=== PATIENT | male | born 1965 | race Caucasian/White ===

== ENCOUNTER → 2017-07-21 10:11 | Outpatient (CLI) | payer BC, SELFPAY ==
[2017-05-15 14:55] VITALS: BMI 32.3
--- NOTE | 2017-07-21 10:24 | MRI_ITS ---
STUDY: MRI BRAIN WITH AND WITHOUT CONTRAST REASON FOR EXAM: Male, 52 years old. Lung CA, BRAIN METS, INTERVAL F/U. TECHNIQUE: Standardized multiplanar fat and water weighted pulse sequences were obtained. 10 ml of Gadavist contrast material was administered intravenously for the contrast portion of the examination. COMPARISON: May 15, 2017 and February 21, 2017 FINDINGS: Again noted are the numerous cerebral and cerebellar enhancing lesions. These lesions have decreased in size and enhancement in comparison with the prior examinations. The largest lesion remains in the left cerebellar hemisphere and right parietal lobe with decreased surrounding vasogenic edema. Normal size of the ventricles and extra-axial spaces for the patient's age. There are a limited number of small white matter hyperintensities, distributed throughout the deep white matter tracts of the cerebral hemispheres, consistent with mild chronic white matter ischemic changes. Normal bilateral basal ganglia. Normal thalami. There is no extra-axial fluid accumulation. Normal flow voids within the major intracranial circulation suggesting patency by spin echo criteria. Normal venous enhancement. There is no enhancing intra-axial or extra-axial abnormality. Normal sella turcica, pituitary gland, infundibular stalk, optic chiasm and hypothalamus. Normal tectal plate and pineal gland. Normal midbrain, dulce maria and medulla. Normal cerebellum. Normal basal cisterns. Normal bilateral internal auditory canals. Small retention cyst is noted within the left maxillary sinus. There is bilateral mastoid fluid. MRI/Brain W/WO Contrast IMPRESSION: Continued decrease of the bilateral cerebral and cerebellar metastatic lesions. No new lesions. Electronically Signed: Yung Sapp MD at 10:28 EDT Tel , Service support ,
[2017-07-21 10:41] LABS: CREATININE FINGERSTICK 0.9 mg/dL (0.70-1.30); EGFR FINGERSTICK > 60.0000 mL/min (>60)
== END ==
PROVIDERS: Family Provider Nurse Practitioner; PCP Nurse Practitioner; Visit Provider Student in an Organized Health Care Education/Training Program
DX: C79.31 Secondary malignant neoplasm of brain (principal)
CPT/HCPCS: 70553; A9585; A4216

== ENCOUNTER → 2017-07-31 14:43 | Outpatient (CLI) | payer BC, SELFPAY ==
[2017-05-15 14:55] VITALS: BMI 32.3
--- NOTE | 2017-07-31 14:46 | US_ITS ---
PROCEDURE: ULTRASOUND GUIDED THORACENTESIS - RIGHT CLINICAL HISTORY: Male, 52 years old. Right pleural effusion CONSENT: The risks, benefits and alternatives to the procedure were explained to the patient, and the patient agreed to the procedure and signed the consent. STERILE BARRIER TECHNIQUE: The following sterile barrier precautions were used during the procedure: hand hygiene; use of 2% chlorhexidine aseptic; use of a cap, mask, sterile gown, sterile gloves, sterile full body drape, and a large sterile sheet. SEDATION: Local anesthesia TECHNIQUE: Under the ultrasound guidance using all elements of maximum sterile technique and after infiltration of the skin and subcutaneous soft tissues with 10 mL of lidocaine 1% a 5 Polish drainage catheter is introduced in the lower part of the right hemithorax. 570 mL of fluid were removed sample sent to lab for evaluation. The patient tolerated the procedure there was no immediate complication. US/Thoracentesis W US IMPRESSION: Successful ultrasound-guided thoracentesis. Electronically Signed: Lien Mary MD at 1:18 EDT Tel , Service support ,
--- NOTE | 2017-07-31 15:30 | RAD_ITS ---
STUDY: X-RAY CHEST REASON FOR EXAM: Male, 52 years old. Chest pain. Status post thoracentesis. TECHNIQUE: Two view, inspiration expiration views. COMPARISON: None. FINDINGS: Multiple bilateral lung metastases are noted. There is a small right pleural effusion. There is no evidence of pneumothorax. Normal size heart. Normal mediastinum and tameka. Normal visualized pulmonary arteries. Normal visualized aortic arch and descending thoracic aorta. Normal visualized thoracic spine. Normal visualized ribs, clavicles, and shoulders. There is no demonstrated abnormality of the visualized soft tissue structures of the upper abdomen. RAD/Chest Insp/Exp 2 View IMPRESSION: Multiple bilateral lung metastases are noted. There is a small right pleural effusion. There is no evidence of pneumothorax. Electronically Signed: Lien Mary MD at 16:28 EDT Tel , Service support ,
[2017-07-31 16:46] LABS: Glucose, Body Fluid 122 mg/dL (40-70)
--- NOTE | 2017-08-01 | FLU_PTH ---
PATIENT: FERNANDO ARCHULETA LOC: [facility]#:[id number] AGE/SX: 59/M ROOM: RE07/31/[address]: Dr. Amilcar Garza DO : 1965 BED: DIS: SPEC #: [id number] RECD: 08/01/17 14:57 STATUS: TEDDY RODDY #: [id number] ANDREE: 08/01/17 00:[address]: Amilcar Garza DEPT: CYTOLOGY RECD BY: Oc Lobo ENTERED: 08/01/17 14:58 SP TYPE: Fluid OTHR DR: Anyi Correa, SERVICE ASSOCIATE-C Tissues: Pleural fluid, NOS Procedures: Pap Stain (control) Special Stain Group II Mucicarmine Stain (control) Surgery Specimen Level IV Cell Block Cytospin Fluid HEADER OPERATION: Ultrasound-guided thoracentesis - right PRE-OP DIAGNOSIS: Right pleural effusion TISSUE SUBMITTED: Thoracentesis fluid for cytology DIAGNOSIS CYTOLOGY Thoracentesis fluid for cytology (cytospin): 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 See comment. SJ:rg 08/03/17 COMMENT Immunohistochemistry ([id number]) supports the above diagnosis. Mucin stain with matched control is used in the evaluation of the specimen and the tumor cells are positive for mucin. Correlation with clinical findings and appropriate follow up are necessary. Case has been reviewed in consultation with Dr. Alves who concurs with the above diagnosis. IDC:AM CYTOLOGY STUDY Slides are reviewed. CYTOLOGY GROSS Received is 50 ml of yellow, cloudy fluid labeled with the patient's name and and designated per the requisition as thoracentesis. Submitted for cytology preparation including cell block. / 08/01/17 TC:0 CPT: 33063, 88277, 88278
--- NOTE | 2017-08-01 | IMM_PTH ---
PATIENT: FERNANDO ARCHULETA LOC: U#:[id number] AGE/SX: 59/M ROOM: RE07/31/[address]: Dr. Amilcar Garza DO : 1965 BED: DIS: SPEC #: [id number] RECD: 08/02/17 10:28 STATUS: WILLOWSonu RODDY #: [id number] ANDREE: 08/01/17 00:[address]: Amilcar Garza DEPT: IMMUNOHISTOCHEMISTRY RECD BY: Chiqui Dupont ENTERED: 08/02/17 10:30 SP TYPE: IMMUNO OTHR DR: Anyi Correa, TOUCH UP PAINTER HAND-C Tissues: THORACIC FLUID Procedures: RCC (add) NAPSIN A (add) Timi Ret (add) CK20 (add) CK5-6 (add) CK7 (add) CK8 (add) HEP PAR (add) MACRO (add) PSA (add) TTF1 (add) P40 (add) Vimentin (initial) [facility]YSIC[facility] [address] [address] SPECIMEN INFORMATION: Tissue Source: Thoracentesis fluid Clinical Info: Right pleural effusion Specimen Number: [id number] CPT code: 33884, 70540 x12 METHODOLOGY: Deparaffinized sections of prefer/formalin-fixed tissue or PAP/DQ stained slides are incubated with monoclonal/polyclonal antibodies/oligonucleotide probes. Localization is made via biotin free immunoperoxidase method. Appropriate controls are performed and reacted as expected. Results on target cell population are indicated in the following table: RESULTS: ANTIBODY / CLONE RESULT Vimentin (V9) negative CK7 (OV-TL12/30) positive CK8 (31bbxwV94) positive, weak CK20 (KS20.8) negative TTF-1 (8G7G3/1) positive Napsin A (Rabbit Polyclonal) positive HepPar (OCh1E5) positive, focal PSA (ER-PR8) negative RCC (PN-15) negative Macro (HAM-56) negative CK5-6 (D5 & 1684) negative CALRET (polyclonal) negative P40 (BC28) negative These tests were developed and their performance characteristics determined by [facility]. They may not have been cleared or approved by the [place]. Food and Drug Administration. The FDA has determined that such clearance or approval is not necessary. INTERPRETATION: Thoracentesis fluid: Malignant cells present derived from non-small cell carcinoma, favor adenocarcinoma, consistent with lung primary. SJ:luis 08/03/17 Case has been reviewed in consultation with Dr. Alves who concurs with the above diagnosis. IDC:AM
[2017-08-01 14:52] LABS: Cytology, Body Fluid / CSF SEE PATHOLOGY REPORT
== END ==
PROVIDERS: Family Provider Nurse Practitioner; PCP Nurse Practitioner; Visit Provider Student in an Organized Health Care Education/Training Program
DX: J90 Pleural effusion, not elsewhere classified (principal)
CPT/HCPCS: 32555; 71046; 82945; 84157; 87070; 87075; 87205; 88108; 88305; 88313; 88341; 88342

== ENCOUNTER → 2017-10-18 11:09 | Outpatient (CLI) | payer OTHER, SELFPAY ==
[2017-05-15 14:55] VITALS: BMI 32.3
--- NOTE | 2017-10-18 11:20 | MRI_ITS ---
STUDY: MRI BRAIN WITH AND WITHOUT CONTRAST REASON FOR EXAM: Male, 52 years old. Lung cancer. Brain metastasis TECHNIQUE: Standardized multiplanar fat and water weighted pulse sequences were obtained. 9 ml of Gadavist contrast material was administered intravenously for the contrast portion of the examination. COMPARISON: July 21, 2017. FINDINGS: Normal size of the ventricles and extra-axial spaces for the patient's age. There are a limited number of small white matter hyperintensities, distributed throughout the deep white matter tracts of the cerebral hemispheres, consistent with mild chronic white matter ischemic changes. There is no evidence for recent intracranial ischemia or other cause of cytotoxic edema on diffusion weighted imaging (DWI). There are multiple cerebral and cerebellar enhancing masses consistent with metastatic disease including measuring 0.7 cm and the left frontal lobe, 1.1 cm and the right parieto-occipital region, 1.0 cm and the right cerebellum, and 1.2 cm and the left cerebellum . There is mild increased edema adjacent to right cerebellar mass with increased size, series 11, image 10/29. Normal bilateral basal ganglia. Normal thalami. There is no extra-axial fluid accumulation. Normal flow voids within the major intracranial circulation suggesting patency by spin echo criteria. Normal venous enhancement. Normal sella turcica, pituitary gland, infundibular stalk, optic chiasm and hypothalamus. Normal tectal plate and pineal gland. Normal midbrain, dulce maria and medulla. Normal basal cisterns. There is moderate chronic otomastoiditis of the left temporal bone. Normal bilateral internal auditory canals. No demonstrated orbital abnormality, within the constraints of a routine brain study. Retention cyst or polyp of the left maxillary sinus. Normal calvarium and skull base. Normal visualized soft tissue structures. Normal visualized upper cervical spine. MRI/Brain W/WO Contrast IMPRESSION: Mild improvement of enhancing cerebral masses. Mild increased size and edema of right cerebellar mass. No acute infarct. Electronically Signed: Vj Joshi MD at 12:04 EDT , Service support ,
== END ==
PROVIDERS: Family Provider Nurse Practitioner; PCP Nurse Practitioner; Visit Provider Student in an Organized Health Care Education/Training Program
DX: G93.89 Other specified disorders of brain (principal); G93.6 Cerebral edema
CPT/HCPCS: 70553; A9585; A4216